=== PATIENT | female | born 1970 | race Caucasian/White ===

== ENCOUNTER → 2021-07-22 08:59 | Outpatient (CLI) | payer OTHER, SELFPAY ==
--- NOTE | ~2021-07-22 | MM_ITS ---
EXAMINATION: MM screening [facility] BI w vince HISTORY: Screening mammogram TECHNIQUE: Craniocaudal and mediolateral oblique 3-D tomosynthesis images were obtained and synthetic 2-D images were generated. CAD analysis was submitted and interpreted. COMPARISON: 03/18/2018, 03/08/2017 BREAST PARENCHYMAL COMPOSITION: The breasts are heterogeneously dense, which may obscure small masses . FINDINGS: There is no suspicious mass, calcification, or architectural distortion to suggest malignan cy in either breast. There has been no suspicious interval change. IMPRESSION: 1. No mammographic evidence of malignancy. 2. Recommend routine screening mammography in one year. BI-RADS Category 1: Negative Reviewed, dictated and finalized at location A.
== END ==
PROVIDERS: PCP Internal Medicine; Visit Provider Nurse Practitioner
DX: Z12.31 Encounter for screening mammogram for malignant neoplasm of breast (principal)
CPT/HCPCS: 77063; 77067

== ENCOUNTER → 2021-10-02 13:47 | Outpatient (CLI) | payer OTHER, SELFPAY ==
--- NOTE | ~2021-10-02 | CT_ITS ---
EXAMINATION: CT lung screening DATE: 10/02/2021 14:24 INDICATION: Personal history of tobacco dependence TECHNIQUE: Computed tomography (CT) of the chest was performed without intravenous contrast. The dose -length product was 100.69 mGy-cm. Automated exposure control and iterative reconstruction technique were employed. COMPARISON: None FINDINGS: No thoracic lymphadenopathy. Heart size normal. No pleural or pericardial effusion. There a re cholecystectomy clips. There is a subtle groundglass opacity in the right upper lobe with associat ed nodules measuring 3 mm or less, images 63-65. There is a 4 mm right middle lobe nodule, image 95. There is a 3 mm right lower lobe nodule, image 95. There is a 2 mm left lower lobe nodule, image 75. There is a 5 mm groundglass nodule in the right upper lobe, image 47. No endobronchial lesions. No pn eumothorax. IMPRESSION: 1. Lung-RADS category 2: Benign appearance or behavior. Continue annual screening with noncontrast lo w-dose chest CT in 12 months. Reviewed, dictated and finalized at location B. IMPRESSION: 1. Lung-RADS category 2: Benign appearance or behavior. Continue annual screeni ng with noncontrast low-dose chest CT in 12 months.
== END ==
PROVIDERS: PCP Internal Medicine; Visit Provider Internal Medicine
DX: Z12.2 Encounter for screening for malignant neoplasm of respiratory organs (principal); Z87.891 Personal history of nicotine dependence
CPT/HCPCS: 71271

== ENCOUNTER 2022-07-18 15:26 | Emergency (ER) | payer OTHER, SELFPAY ==
--- NOTE | ~2022-07-18 | XR_ITS ---
EXAM: XR lumbar spine 2-3V DATE: 07/18/2022 16:06 HISTORY: LBP AFTER BENDING DOWN . COMPARISON: None available. FINDINGS: Cholecystectomy clips. Pelvic phleboliths. 5 nonrib-bearing lumbar-type vertebral bodies. P edicles intact. Trace 1-2 mm anterolisthesis at L4-5. Multilevel mild disc space narrowing and margin al osteophytosis. Mid and lower lumbar facet hypertrophy and sclerosis. No fracture or dislocation. IMPRESSION: Minimal grade 1 anterolisthesis at L4-5. Mild multilevel lumbar degenerative disc disease . Mid and lower lumbar facet arthropathy. Reviewed, dictated and finalized at location K. IMPRESSION: Minimal grade 1 anterolisthesis at L4-5. Mild multilevel lumbar deg enerative disc disease. Mid and lower lumbar facet arthropathy.
[2022-07-18 15:35] VITALS: BP 151/86; PULSE 78; RESP 16; TEMP 36.6; O2SAT 98
--- NOTE | 2022-07-18 15:41 | ED.BACK ---
HPI - Back Pain/Injury General Chief Complaint: Back Pain/Injury Stated Complaint: lower back pain Time Seen by Provider: 07/18/22 15:28 Source: patient and RN notes reviewed History of Present Illness HPI Narrative: Patient is a 51-year-old female who presents to urgent care with complaints of low back pain. Patient states that it started Saturday after bending over the bathtub. Patient states her ever since then. Patient states that she has been taking ibuprofen and using ice and heat for discomfort. Patient has been having chronic issues with bilateral hips and just done an MRI yesterday. Patient states that hurt severely to lay on her back for the MRIs. Patient has not followed up with her doctor regarding her recent back pain. States that it hurts worse to sit, laid down or ambulate. Denies any loss of bowel or bladder. No other acute complaints. No acute distress noted. Patient aware of the plan of care. Some parts of this dictation were generated by voice recognition software and may contain typographical and/or grammatical inaccuracies. Related Data Home Medications Medication Instructions Recorded Confirmed duloxetine 60 mg capsule,delayed 60 mg PO DIRECTED 07/18/22 07/18/22 release escitalopram oxalate 20 mg tablet 20 mg PO DIRECTED 07/18/22 07/18/22 famotidine 40 mg tablet 40 mg PO DIRECTED 07/18/22 07/18/22 fremanezumab-vfrm 225 mg/1.5 mL 225 mg subcut DIRECTED 07/18/22 07/18/22 subcutaneous auto-injector (Ajovy) meloxicam 15 mg tablet 15 mg PO DIRECTED 07/18/22 07/18/22 metoprolol succinate 50 mg 50 mg PO DIRECTED 07/18/22 07/18/22 tablet,extended release 24 hr sulfamethoxazole 800 1 tablet PO BID 07/18/22 07/18/22 mg-trimethoprim 160 mg tablet topiramate 50 mg tablet 50 mg PO DIRECTED 07/18/22 07/18/22 trazodone 100 mg tablet 100 mg PO DIRECTED 07/18/22 07/18/22 Allergies Allergy/AdvReac Type Severity Reaction Status Date / Time Penicillins Allergy Mild SWELLING Verified 07/18/22 15:46 Review of Systems Review of Systems: CONSTITUTIONAL: Denies fever, chills, or sweats. EYES: Denies visual changes, redness, or discharge. ENT: Denies rhinorrhea, congestion, sore throat, or otalgia. CARDIOVASCULAR: Denies chest pain, palpitations, or edema. RESPIRATORY: Denies cough or dyspnea. GASTROINTESTINAL: Denies abdominal pain, nausea, vomiting, or diarrhea. GENITOURINARY: Denies dysuria or hematuria. SKIN: Denies rash or itching. MUSCULOSKELETAL: Reports of low back pain and chronic bilateral hip pain NEUROLOGIC: Denies headache, numbness, or weakness. All other systems reviewed are negative, except as documented in HPI. PMFSH Comments At the time of my signature, I reviewed and agree with the nursing past medical, surgical, social, and family history. There is no relevant family history pertinent to the patient complaint. Exam Narrative: GENERAL: This is a well-nourished, well-developed patient, in no apparent distress. HEAD: normocephalic, atraumatic. EYES: PERRL. Sclera clear/white. Vision is grossly intact. EARS: External ears normal NOSE: External nose normal with no obvious nasal discharge, nares without redness, no rhinorrhea. THROAT: Mucous membranes moist NECK: Neck supple SKIN: warm, intact with no suspicious lesions or rash, good texture and turgor. NEURO: awake, alert, and oriented to person, place and time. There were no obvious focal neurologic abnormalities. EXTREMITIES: No clubbing, cyanosis, or edema. BACK: Diffuse lumbar tenderness with mild to moderate swelling over the sacrum region without ecchymosis. Bilateral SLE. Course Course Level of Care: Express Care Visit Vital Signs Vital signs: Vital Signs Temperature 97.8 F 07/18/22 15:35 Pulse Rate 78 07/18/22 15:35 Respiratory Rate 16 07/18/22 15:35 Blood Pressure 151/86 H 07/18/22 15:35 Pulse Oximetry 98 07/18/22 15:35 Oxygen Delivery [facility]22 [facility]
[2022-07-18 15:49] VITALS: BP 151/86; PULSE 78; RESP 16; TEMP 36.6; O2SAT 98
[2022-07-18] MEDS: KETOROLAC (*BKC) 60 MG/2 ML VIAL IM (16:37)
== END 2022-07-18 16:50 | disposition home or self-care (01) ==
PROVIDERS: Emergency Provider Nurse Practitioner Family; PCP Internal Medicine
DX: S39.012A Strain of muscle, fascia and tendon of lower back, initial encounter (principal); Z79.1 Long term (current) use of non-steroidal anti-inflammatories (NSAID); X50.0XXA Overexertion from strenuous movement or load, initial encounter
CPT/HCPCS: 72100; 96372; 99203; G0463; J1885

== ENCOUNTER → 2022-07-30 12:24 | Outpatient (CLI) | payer OTHER, SELFPAY ==
--- NOTE | ~2022-07-30 | DEXA_ITS ---
Bone Density Report Name: QUITA VO Age: 51 Sex: Female Ethnicity: White Date of : 1970 Indication: postmenopausal; screening for osteoporosis; Referring Provider: OMAR, ALEAH Study: Bone densitometry was performed. Exam Date: July 30, 2022 Accession number: [id number] Bone Density: Region BMD T-score Z-score Classification AP Spine (L1-L4) 1.150 0.9 1.8 Normal Femoral Neck (Left) 0.925 0.7 1.5 Normal Total Hip (Left) 1.099 1.3 1.8 Normal Femoral Neck (Right) 0.864 0.1 1.0 Normal Total Hip (Right) 0.991 0.4 0.9 Normal Total Hip Mean 1.045 0.9 1.4 Normal World Health Organization criteria for BMD impression classify patients as: Normal (T-score at or above -1.0), Osteopenia (T-score between -1.0 and -2.5), or Osteoporosis (T-score at or below -2.5). 10-year Fracture Risk: FRAX not reported because: All T-scores for Spine Total, Hip Total, Femoral Neck at or above -1.0 Clinical Information Provided by Patient: Has used the following medications: Vitamin D Patient maximum height was 68.25 No regular weight bearing exercise Drinks caffeinated beverages Onset of menses at age 14 Number of children 1 Missed period for more than 6 months in a row Impression: The patient has normal bone mass. Discussion: BONE DENSITY IS ABOVE THE MINIMUM DESIRABLE LEVEL AT ALL SKELETAL SITES TESTED. This patient?s bone mineral density is above the minimum desirable level (T-score -1.0 or better) at all sites measured. The patient should follow a healthful lifestyle (good nutrition with adequate calcium and vitamin D, and appropriate weight-bearing exercise). Follow-Up: Consider repeating this study in 5 years or sooner if there is some new clinical indication. Reported by: MUNA on 07/30/2022 12:56:00 PM. Reviewed, dictated and finalized at location AGwen NEWMAN
--- NOTE | ~2022-07-30 | MM_ITS ---
EXAMINATION: MM screening [facility] BI w vince HISTORY: Screening mammogram TECHNIQUE: Craniocaudal and mediolateral oblique 3-D tomosynthesis images were obtained and synthetic 2-D images were generated. CAD analysis was submitted and interpreted. COMPARISON: 07/22/2021, 03/18/2018 bilateral screening mammogram examinations BREAST PARENCHYMAL COMPOSITION: The breasts are heterogeneously dense, which may obscure small masses . FINDINGS: There is no evidence of suspicious mass, calcification, or architectural distortion to sugg est malignancy in either breast. There has been no suspicious interval change. IMPRESSION: 1. No mammographic evidence of malignancy. 2. Recommend routine screening mammography in one year. BI-RADS Category 1: Negative Reviewed, dictated and finalized at location A.
== END ==
PROVIDERS: PCP Internal Medicine; Visit Provider Nurse Practitioner
DX: Z12.31 Encounter for screening mammogram for malignant neoplasm of breast (principal); Z13.820 Encounter for screening for osteoporosis; Z78.0 Asymptomatic menopausal state
CPT/HCPCS: 77063; 77067; 77080